=== PATIENT | male | born 1935 | race Caucasian/White ===

== ENCOUNTER 2021-02-18 06:29 | Day surgery (SDC) | payer OTHER, BC ==
[~2021-02-18] VITALS: Ht 175.3 cm; Wt 68.0 kg
[~2021-02-18 06:29] MED LIST: AMLODIPINE BESY10 MG PO; ASA81BEC PO; BACTRIM 400-801 EACH PO; FLOMAX0.4 MG PO; LISINOPRIL10 MG PO; NITROSTAT0.4 M1 SUBLING; PROTONIX40 M2 PO; SYMBICORT160 MCG/4. INH; TAMSULOSIN HCL0.4 MG PO; TIROSINT125 MCG PO; VENTOLIN HFA INH8 GM INH; VITAMIN B-121000 MC2 SUBLING; VITAMIN D3125 MC1 PO
[2021-02-18 07:29] VITALS: BP 131/73
--- NOTE | 2021-02-24 11:13 | O ---
[facility] [place] [address] OPERATIVE REPORT Name: HARINDER MOONEY Room #: DEP [facility].R.#: [id number] Admission: 02/18/21 Attend Phys: Grant Adams MD Discharge: 02/18/21 Date of : [birth year] Report #: [id number] THIS REPORT FOR: cc: Jorge Luis Webster MD,Jorge Luis Adams,Grant Carrasco MD ~ cc: Jorge Luis Webster MD DATE OF SERVICE: 02/18/2021 SURGEON: Grant Adams MD POLITICAL SCIENCE RESEARCH ASSISTANT: None. PREOPERATIVE DIAGNOSIS: Bilateral lower lid ectropion. POSTOPERATIVE DIAGNOSIS: Bilateral lower lid ectropion. OPERATION PERFORMED: Bilateral lower lid ectropion repair. ANESTHESIA: Local with IV sedation. COMPLICATIONS: None. INDICATIONS FOR PROCEDURE: This patient has bilateral acquired lower lid ectropion with chronic tearing, keratopathy and discharge. The current procedures are undertaken in order to improve the patient's visual function, lacrimal outflow, and level of comfort. Informed consent was obtained to include but not limit to the risk of loss of vision, bleeding, infection, scarring, failure to improve the problem and need for further surgery. DESCRIPTION OF OPERATION: The patient was taken to the operating room where 2% Xylocaine with epinephrine mixed with equal parts of 0.75% Marcaine with Wydase was administered transcutaneously and transconjunctivally to each lower lid and lateral canthal area. The patient was then prepped and draped in the usual sterile fashion. A Tyrese clamp was then used to clamp the left lateral canthus following which a sharp canthotomy and cantholysis were performed. The tarsal strip was prepared laterally, removing the lash bearing portion of the redundant lid margin and the redundant tarsal plate. Hemostasis was achieved with a monopolar cautery, as it was throughout the case. The tarsal strip was then secured to the internal portion of the lateral orbital tubercle with two interrupted 5-0 Prolene sutures. The lateral canthal angle was sharply reformed as the subcutaneous structures and the skin were closed with multiple interrupted 6-0 plain gut sutures. Attention was then turned to the right side where the same procedure was [facility] [address] [place] [address] OPERATIVE REPORT Name: HARINDER MOONEY Room #: DEP [facility].#: [id number] Admission: 02/18/21 Attend Phys: Grant Adams MD Discharge: 02/18/21 Date of : [birth year] Report #: [id number] performed. The wounds were cleaned and dressed with ophthalmic antibiotic ointment. The patient was then transported to the recovery area, having tolerated the procedure well with no anesthetic or operative complications being noted. <ELECTRONICALLY SIGNED> By: Grant Adams MD 02/24/21 1113 [id number] 0730 Grant Adams MD /nt
== END 2021-02-18 09:00 | disposition home or self-care (01) ==
LOC: OR → TBA 06:29 → OR 06:29 → TBA 06:30 → OR 08:07
PROVIDERS: ATTEND Ophthalmology
DX: H02.105 Unspecified ectropion of left lower eyelid (principal); H02.102 Unspecified ectropion of right lower eyelid; I10 Essential (primary) hypertension; I48.91 Unspecified atrial fibrillation; I25.2 Old myocardial infarction; J45.909 Unspecified asthma, uncomplicated; G47.30 Sleep apnea, unspecified; K21.9 Gastro-esophageal reflux disease without esophagitis; Z98.890 Other specified postprocedural states; Z79.899 Other long term (current) drug therapy; Z86.73 Personal history of transient ischemic attack (TIA), and cerebral infarction without residual deficits; Z79.01 Long term (current) use of anticoagulants; Z95.0 Presence of cardiac pacemaker; Z85.46 Personal history of malignant neoplasm of prostate; Z20.822 Contact with and (suspected) exposure to COVID-19
CPT/HCPCS: 50010; 50101; 50386; 50398; 51636; 56527; 56531; 62110; 62850; 70005